=== PATIENT | male | born 1965 | race Caucasian/White ===

== ENCOUNTER 2020-06-05 08:42 | Outpatient (REF) | payer BC, SELFPAY ==
[2020-06-05 11:41] LABS: Cholesterol 274 mg/dL; HDL Cholesterol 38 mg/dL; LDL Cholesterol Calculated 187 mg/dl; Triglycerides 248 mg/dL
== END 2020-06-05 08:43 | disposition home or self-care (01) ==
LOC: HO.MANLR 08:42
PROVIDERS: PCP Internal Medicine; Visit Provider Internal Medicine
DX: E78.5 Hyperlipidemia, unspecified (principal)
CPT/HCPCS: 36415; 80061

== ENCOUNTER 2021-08-13 09:58 | Outpatient (REF) | payer BC, SELFPAY ==
[2021-08-13 11:03] LABS: MANUAL DIFF FLAG NO
[2021-08-13 11:09] LABS: Basophils Percent Auto 0.7 % (0-2); Eosinophils Absolute Auto 0.1 X10*3/uL (0.0-0.4); Eosinophils Percent Auto 1.9 % (0-4); Hemoglobin 15.3 g/dl (14.0-18.0); Imm Gran Abs Auto 0.03 X10*3/uL (0.00-0.03); Imm Gran Pct Auto 0.5 % (0.0-0.4); Lymphocytes Absolute Auto 1.9 X10*3/uL (1.2-4.9); Lymphocytes Percent Auto 33.4 % (20-40); Mean Corpuscular HGB Conc 33.3 g/dl (31.0-36.0); Mean Corpuscular Hemoglobin 31.4 pg (27.0-33.0); Mean Corpuscular Volume 94.5 fL (80.0-98.0); Mean Platelet Volume 9.6 fL (9.4-12.4); Monocytes Absolute Auto 0.5 X10*3/uL (0.1-1.2); Monocytes Percent Auto 8.7 % (2-11); Neutrophils Absolute Auto 3.1 x10*3/uL (2.0-8.3); Neutrophils Percent Auto 54.8 % (45-73); Platelet Count 260 X10*3/uL (160-400); Red Blood Count 4.87 X10*6/uL (4.60-5.80); Red Cell Distribution Width 12.8 % (11.0-16.0); White Blood Count 5.7 X10*3/uL (4.8-10.8)
[2021-08-13 11:21] LABS: Estimated Average Glucose 114 mg/dL; Hemoglobin A1c % 5.6 %
[2021-08-13 11:48] LABS: Erythrocyte Sedimentation Rate 2 MM/HR (0-15)
[2021-08-13 12:15] LABS: Alanine Aminotransferase 32 U/L (0-40); Albumin Level 4.4 g/dL (3.5-5.0); Alkaline Phosphatase 62 U/L (39-117); Anion Gap 14 (12-20); Aspartate Amino Transferase 15 U/L (5-37); Bilirubin Total 0.7 mg/dL (0.0-1.0); Blood Urea Nitrogen 18 mg/dL (9-16); C Reactive Protein 0.05 mg/dL (< or = 0.50); Calcium 9.5 mg/dL (8.4-10.2); Carbon Dioxide 25 mmol/L (22-29); Chloride 106 mmol/L (96-108); Cholesterol 259 mg/dL; Estimated Glomerular Filt Rate > 60; Gamma Glutamyl Transpeptidase 70 U/L (11-51); Glucose Fasting 93 mg/dL (60-99); HDL Cholesterol 36 mg/dL; Iron 130 mcg/dL (45-160); LDL Cholesterol Calculated 182 mg/dl; Lipase 18 U/L (8-78); Percent Iron Saturation 43 % (15-50); Potassium 4.6 mmol/L (3.3-5.1); Sodium 140 mmol/L (135-145); Total Iron Binding Capacity 305 mcg/dL (228-428); Total Protein 7.2 g/dL (6.5-8.0); Triglycerides 205 mg/dL; Unsaturated Iron Binding 175 ug/dL
[2021-08-13 12:21] LABS: Ferritin 233 ng/mL (20-250)
[2021-08-13 12:24] LABS: Amylase 50 U/L (28-100)
== END 2021-08-13 09:59 | disposition home or self-care (01) ==
LOC: HO.MANLDS 09:58
PROVIDERS: PCP Physician Assistant; Visit Provider Physician Assistant
DX: R10.32 Left lower quadrant pain (principal); E78.01 Familial hypercholesterolemia
CPT/HCPCS: 36415; 80053; 80061; 82150; 82728; 82977; 83036; 83540; 83690; 85025; 85652; 86140

== ENCOUNTER 2023-08-11 10:07 | Outpatient (REF) | payer BC, SELFPAY ==
[2023-08-11 13:15] LABS: MANUAL DIFF FLAG NO
[2023-08-11 13:51] LABS: Basophils Absolute Auto 0.1 X10*3/uL (0.0-0.2); Basophils Percent Auto 0.9 % (0-2); Eosinophils Absolute Auto 0.1 X10*3/uL (0.0-0.4); Hematocrit 44.6 % (42.0-52.0); Hemoglobin 14.9 g/dl (14.0-18.0); Imm Gran Abs Auto 0.02 X10*3/uL (0.00-0.03); Imm Gran Pct Auto 0.4 % (0.0-0.4); Lymphocytes Absolute Auto 2.1 X10*3/uL (1.2-4.9); Mean Corpuscular HGB Conc 33.4 g/dl (31.0-36.0); Mean Corpuscular Hemoglobin 31.9 pg (27.0-33.0); Mean Corpuscular Volume 95.5 fL (80.0-98.0); Mean Platelet Volume 9.8 fL (9.4-12.4); Monocytes Absolute Auto 0.5 X10*3/uL (0.1-1.2); Monocytes Percent Auto 8.9 % (2-11); Neutrophils Absolute Auto 2.7 x10*3/uL (2.0-8.3); Neutrophils Percent Auto 49.8 % (45-73); Platelet Count 258 X10*3/uL (160-400); Red Blood Count 4.67 X10*6/uL (4.60-5.80); Red Cell Distribution Width 13.2 % (11.0-16.0); White Blood Count 5.5 X10*3/uL (4.8-10.8)
[2023-08-11 14:03] LABS: Alanine Aminotransferase 31 U/L (0-40); Albumin Level 4.3 g/dL (3.5-5.0); Alkaline Phosphatase 58 U/L (39-117); Anion Gap 15 (12-20); Aspartate Amino Transferase 17 U/L (5-37); Bilirubin Total 0.7 mg/dL (0.0-1.0); Blood Urea Nitrogen 14 mg/dL (9-16); Calcium 9.6 mg/dL (8.4-10.2); Carbon Dioxide 25 mmol/L (22-29); Chloride 105 mmol/L (96-108); Estimated Glomerular Filt Rate > 60; Glucose Random 91 mg/dL (60-115); Potassium 4.3 mmol/L (3.3-5.1); Sodium 141 mmol/L (135-145); Thyroid Stimulating Hormone 1.11 uIU/mL (0.32-4.0); Total Protein 7.1 g/dL (6.5-8.0); Vitamin D 25-OH Total 96.8 ng/mL (>30)
[2023-08-11 14:09] LABS: Folate 14.1 ng/mL (> or = 4.0); Vitamin B12 460 pg/mL (200-900)
[2023-08-15 17:07] LABS: Testosterone, Total 297 ng/dL (250-1100)
== END 2023-08-11 10:08 | disposition home or self-care (01) ==
LOC: HO.MANLDS 10:07
PROVIDERS: Visit Provider Internal Medicine
DX: R53.83 Other fatigue (principal)
CPT/HCPCS: 36415; 80053; 82306; 82607; 82746; 84403; 84439; 84443; 85025

== ENCOUNTER 2024-07-25 08:04 | Outpatient (REF) | payer BC, SELFPAY ==
--- OUTSIDE RECORDS SUMMARY | 2024-07-25 08:16 | XMS_ITS | Patient Health Record ---
Author Organization [facility] Address [address] [place] [address] Care Team Providers Care Aviation Electronic Warfare Operator Name Role Phone Mack Mann MD Primary Care Provider Sterling Haddad Unavailable [phone] Allergies Allergen (clinical drug ingredient) Drug/Non Drug Allergy documented on EMR Reaction Allergy Type Onset Date Status amoxicillin Amoxicillin Unknown Drug Allergy Act lion Reason For Referral No Information Medications Medication SIG (Take, Route, Frequency, Duration) Notes Start Date End Date Status Work Note . . . patient is disab led from work until 12/23/20 12/19/2020 Active Fiber Active Multivitamin Active Probiotic & Acidophilus Ex St Active Probiotic Active Vitamin C Active Zoloft 25 MG 1 tablet Orally Once a day for 30 day(s) Active Immunizations Vaccine Route Administration Date Status Comme nts COVID-19 Pfizer BioNTech Vaccine Unknown 07/02/2020 Administered 1st 06/11/2020 Social History Tobacco Use: Social History Observation Description Date Details (start date - stop date) Never Smoker NA - NA Tobacco Use/Smoking Question Answer Notes Are you a: nonsmoker Additional Findings: Tobacco Non-User Current no n-smoker Alcohol Screen Question Answer Notes Did you have a drink containing alcohol in the p ast year? Yes Points 0 Interpretation Negative Tobacco use other than smoking: Question Answer Notes Are you an other tobacco user? No Problems Problem Type SNOMED Code ICD Code Onset Dates Problem Status W/U Status Risk Notes Problem Plantar fascial fibromatosis (52465835) Plantar fascial fibromatosis (M72.2) Active confirmed Plan Of Treatment Pending Test Test Name Order Date X ray : Foot, left 2V 01/21/2015 X ray : Foot, right 2V 01/21/2015 [id number] TENDON SHEATH/LIGAMENT 0 12/19/2020 Insurance Providers Payer Name Payer Address Payer Phone Subscriber Number Group Number Insured Name Patient Relationship to Insured Coverage Start Date Coverage End Date [facility] [address] [place] [address] [id number] Luis Heredia Self - patient is the insured Medical (General) History Medical History History ICD Code Headaches/Migraines Chicken pox Surgical History Surgery Date(Month/Year) hernia
--- OUTSIDE RECORDS SUMMARY | 2024-07-25 08:16 | XMS_ITS | Continuity of Care Document ---
Author Organization [facility], [facility] Address [address] [address] Assessment No assessment recorded. Plan of Treatment Reminders Order Date Submit Date Provider Last Modified By Organization Details Last Modified Time Details Appointments None recorded. Lab testostero ne, free + total, serum 2024 025 [facility], [address] [place] [address], [place], [address], 5 10:10:58 Referral sleep medicine referral 2024 025 [email or web address] [facility], [address] [facility], [facility] [address], [place], [address], 5 10:58:55 Procedures None recorded. Surgeries None recorded. Imaging None recorded. Medication Orders propranolo l 10 mg tablet 2024 025 [facility] #[id number], [address] [place], [address], 5 10:00:55 Patient TargetsNo targets recorded. Patient InstructionsNo instructions recorded. Reason for Referral Sleep Medicine Referral for Obstructive sleep apnea syndrome home sleep study, needs to confirm if mouth guard is working for sleep dentist Referring Physician: Audrey Franco, Internal Medicine, Encounter Date: 07/21/2024 Problems Name Problem SNOMED Code Status Onset Date Resolution Date Notes Provider Name and Address Organization Details Recorded Time Migraine 41968148 Active 2017 SVITLANA Valladares [facility] 8 14:46:26 Headache 50945573 Active 2017 Keli Cary [facility] Internal 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 2019 Mack Mann DO [address] [place] [address], [phone], [facility] 0 10:59:44 Plantar fasciiti s 139575123 Active 2019 Mack Mann, DO [address] [place] [address], [address], [facility] 0 10:59:46 Abdomina l pain 91828038 Active 2021 CARLOS MENDIOLA [address] [place] [address], [address], [facility] 2 16:35:53 Divertic ulosis of colon 193744164 Active 2021 CARLOS MENDIOLA [address] [place] [address], [address], [facility] 2 16:36:03 Divertic ulitis 592633553 Active 2021 CARLOS MENDIOLA [address] [place] [address], [address], [facility] 2 10:17:20 Lipoma of skin 470778305 Active 2021 CARLOS MENDIOLA [address] [place] [address], [address], [facility] 2 10:52:29 Pain of left shoulder joint [id number] 988857 Active 2021 CARLOS MENDIOLA [address] [place] [address], [address], [facility] 2 10:54:03 Hand pain 38533218 Active 2021 CARLOS MENDIOLA [address] [place] [address], [address], [facility] 2 10:56:34 Pain of left hip joint 30623501177 9100 Active 2022 Mack Mann, [address] [place] [address], [address], [facility] 3 11:36:45 Lumbago with sciatica 269189498 Active 2022 Mack Mann DO [address] [place] [address], [address], [facility] 3 11:37:34 Lumbago with sciatica 014851910 Active 2022 Mack Mann DO [address] [place] [address], [address], [facility] 3 11:37:46 Dry eyes 955236413 Active 2023 Mack Mann DO [address] [place] [address], [address], [facility] 4 09:57:54 Oral herpes simplex infectio n 692927539 Active 2023 Mack Mann DO [address] [place] [address], [address], [facility] 4 10:00:52 Fatigue 26842256 Active 2023 Mack Mann DO [address] [place] [address], [address], [facility] 4 10:02:15 Sacral back pain 44020494 Active 2023 Mack Mann DO [address] [place] [address], [address], [facility] Internal [facility] 4 15:25:23 Becca pennington's contract ure of finger 536848107 Active 2024 Mack Mann DO [address] [place] [address], [address], [facility] 5 13:34:40 Obstruct lion sleep apnea syndrome 79776141 Active 2024 CARLOS MENDIOLA [address] [place] [address], [address], [facility] 5 09:57:04 Generali zed anxiety disorder 37063214 Active 2024 CARLOS MENDIOLA [address] [place] [address], [address], [facility] 5 09:58:31 Testoste raghu level below referenc e range 649593374 Active 2024 CARLOS MENDIOLA [address] [place] [address], [address], [facility] 5 09:59:47 Problem Notes None recorded. Procedures Surgical History Date Name Laterality Status Provider Name and Address Organization Details Recorded Time 023 Corticosteroid Injection completed Mack Mann DO [address] [place] [address], [phone], [facility] 04/13/2022 12:45:14 019 Colonoscopy completed Keli Cary [facility] Internal [facility] 05/06/2018 08:20:59 018 Suture/Staple removal completed Mack Mann DO [address] [place] [address], [phone], [facility] 11/19/2017 15:56:46 Imaging Results None recorded. Procedure Notes None recorded. Medical Equipment None Reported. Allergies Allergen ID Allergen Name Allergen Category Reaction Reaction Severity Criticality Documentation Date Start Date Code Code System Note Provider Name and Address Organization Details Recorded Time 3098 Xyl medicatio n angioedem a Not available Not available 09/07/2018 14174 5 RxNorm July Poonam, [employer] [address] [place], [address] , [facility] 9 13:14:03 Medications Name Sig Start Date Stop Date Status Note LastModified by Organization Details LastModified Time Prescriptio n - Prior Authorizati on Request 06/26 completed Not Available Not Available Not Available amoxicillin 500 mg capsule TAKE 1 CAPSULE BY MOUTH 3 TIMES PER DAY UNTIL GONE. 08/10 completed Not Available Not Available Not Available atorvastati n 10 mg tablet Take 1 tablet every day by oral route. 09/28 completed Not Available Not Available Not Available azithromyci n 250 mg tablet TAKE 2 TABLETS BY MOUTH TODAY, THEN TAKE 1 TABLET DAILY FOR 4 DAYS DIRECTED 07/21 completed Not Available Not Available Not Available valacyclovi r 1 gram tablet TAKE 1 TABLET BY MOUTH TWICE A DAY START DONNELL AT ONSET OF SYMPTOMS active Not Available Not Available No t Available prednisone 20 mg tablet 09/28 completed Not Available Not Available Not Available metronidazo le 500 mg tablet TAKE 1 TABLET BY MOUTH EVERY 8 HOURS FOR 7 DAYS 03/25 completed Not Available Not Available Not Available naproxen 125 mg/5 mL oral suspension active Not Available Not Available N ot Available ciprofloxac in 500 mg tablet TAKE 1 TABLET BY MOUTH EVERY 12 HOURS FOR 7 DAYS 03/25 completed Not Available Not Available Not Available minoxidil 2.5 mg tablet TAKE ONE HALF TABLET BY MOUTH DAILY active Not Available Not Available No t Available oxycodone-a cetaminophe n 5 mg-325 mg tablet TAKE 1 TABLET BY MOUTH EVERY 8 HOURS NEEDED FOR PAIN 08/10 completed Not Available Not Available Not Available propranolol 10 mg tablet Take 1 tablet twice a day by oral route as needed for 30 days. 2024 active Not Available Not Available Not Avai lable Vitamin C 1,000 mg tablet Take 1 tablet twice a day by oral route. active Not Available Not Available No t Available triamcinolo ne acetonide 0.1 % topical ointment 10/09 completed Not Available Not Available Not Available butalbital- aspirin-caf feine 50 mg-325 mg-40 mg capsule Take 1 capsule twice a day by oral route as needed for 7 days. 02/22 completed Not Available Not Available Not Available docusate sodium 100 mg capsule TAKE 1 CAPSULE BY MOUTH EVERY DAY FOR 2 WEEKS 08/10 completed Not Available Not Available Not Available codeine 10 mg-guaifene sin 100 mg/5 mL oral liquid 11/19 completed Not Available Not Available Not Available bisacodyl 5 mg tablet,johanny yed release 08/16 completed Not Available Not Available Not Available mupirocin 2 % topical ointment APPLY TO SURGICAL SITE TWICE A DAY FOR 7-14 DAYS OR UNTIL FULLY HEALED active Not Available Not Available No t Available loteprednol etabonate 0.5 % eye drops,suspe nsion INSTILL 1 DROP OU QID FOR 14 DAYS 08/12 completed Not Available Not Available Not Available sertraline 50 mg tablet TAKE 1 TABLET BY MOUTH EVERY DAY 08/10 completed Not Available Not Available Not Available Restasis 0.05 % eye drops in a dropperette Instill by ophthalmi c route for 30 days. active Not Available Not Available No t Available rosuvastati n 5 mg tablet TK 1 T PO QAM 02/22 completed Not Available Not Available Not Available Garlique take 1 tablet by mouth once a day active Not Available Not Available No t Available Multivitami n 50 Plus 1 tablet by mouth once day active Not Available Not Available No t Available GaviLyte-G 236 gram-22.74 gram-6.74 gram-5.86 gram oral solution 08/16 completed Not Available Not Available Not Available Lotemax 0.5 % eye ointment INSTILL 1 DROP IN BOTH EYES QID FOR 14 DAYS 06/26 completed Not Available Not Available Not Available Systane (PF) 1 drop in each eye 4 to 5 times a day active Not Available Not Available No t Available Xiidra 5 % eye drops in a dropperette PUT 1 DROP INTO BOTH EYES TWICE A DAY EVERY 12 HOURS active Not Available Not Available No t Available Fluvirin 8219-8846 (PF) 45 mcg(15 mcg x3)/0.5 mL intramuscul ar syringe 03/02 completed Not Available Not Available Not Available Fluarix Quad (PF) 60 mcg (15 mcg x 4)/0.5 mL IM syringe 08/16 completed Not Available Not Available Not Available Afluria Qd (36 mos up)(PF)60 mcg (15 mcg x4)/0.5 mL IM syringe ADM 0.5ML IM UTD 06/26 completed Not Available Not Available Not Available BinaxNOW COVID-19 Ag Self Test kit FOLLOW PACKAGE DIRECTION S 08/10 completed Not Available Not Available Not Available Vitals Date Recorded Body height Body mass index (BMI) Body weight Heart rate Oxygen saturation Oxygen saturation in Arterial blood by Pulse oximetry Systolic blood pressure Diastolic blood pressure Provider Name and Address Organization Details Last Updated DateTime 5 177.8 cm 29.8 kg/m2 64767.2 1 g 77 /min 98 % 98 % 120 mm[Hg] 74 mm[Hg] [facility] 5 09:53:54 Social History Question Answer Notes LastModified by Organizat ion Details LastModified Time Tobacco Smoking Status Never Smoker Not Available [facility] 02[facility]06/2020 03:36:24 What Was The Date Of Your Most Recent Tobacco Screening? 07/21/2024 [email or web address] Information not available 07/21/2024 Do You Or Have You Ever Used Any Other Forms Of Tobacco Or Nicotine? No [email or web address] Information not available 03/25/2022 Sex: Unknown Functional Status None recorded. Mental Status None recorded. Family History Nothing Reported. Medical History Condition Response Coronary Artery Disease N Other N Gout N Blood Diseases N Kidney Stones N Breast Cancer N Blood Transfusion N Lung Disease N Depression N COPD N Defects or Inherited Disease N Anxiety Disorder N Muscle, Joint, or Bone Problems N Obesity N Vision or Eye Problems N Arthritis N Infertility N Polyps N Mental Disorder N Cancer N Stroke N Varicosities N Endometriosis N Bladder or Kidney Problems N High Cholesterol N Liver Disease N Fibromyalgia N Headaches N Kidney Disease N Allergies/Hayfever N Heart Problems N Hospitalizations N Thyroid Problems N GI Problems N Eating Disorder N Skin Problems N Anemia N MRSA exposure N Constipation N Mental Illness N Diabetes N Ovarian Cancer N Seizures/Epilepsy N Tuberculosis N Congestive Heart Failure (CHF) N Eczema N Abuse/Domestic Violence N Diverticulitis N Asthma N Reflux/GERD N Hepatitis N Heart Disease N Pulmonary Embolism N Hypertension N Chicken Pox N Autism Spectrum Disorder (ASD) N Osteoporosis N Immunizations Vaccine Type Date Status Note Provider Nam e and Address Organization Details Recorded Time influenza, unspecified formulation 2 completed Keli rincon [facility] 03/25/2022 10:34:52 Influenza, split virus, quadrivalent, preservative 0 bhavana rincon [facility] 06/26/2020 12:12:25 COVID-19, mRNA, LNP-S, PF, 30 mcg/0.3 mL dose 1 completed Keli Cary [facility] 06/26/2020 12:14:33 Past Encounters Encounter ID Performer Location Encounter Start Date Encounter Closed Date Diagnosis/Indication Diagnosis SNOMED-CT Code Diagnosis ICD10 Code Diagnosis Note [id number] CARLOS MENDIOLA [facility] [address] [facility],[place] [address] 07/21/2024 09:48:26 07/21/2024 10:58:55 Obstructive sleep apnea syndrome 25630824 G47.33 will set up with home sleep study Generalize d anxiety disorder 10353685 F41.1 would like a script for this, worked well Testostero ne level below reference range 214250759 R79.89 recheck levels Health Concerns Section Related Observation LastModified by Organization Detai ls LastModified Time None Recorded Concern Status LastModified by Organization Details LastModified Time None Recorded Payers Encounter Date Sequence Insurance Name Policy Number Policy Collazo Covered Member ID Collazo Member ID Guarantor Name 07/21/2024 1 [facility] [place] [id number] Luis Heredia [id number] Luis Heredia Notes Date Note Type Note Provider Name a nd Address Organization Details Recorded Time 07/21/2024 text/html f/u medication check sleep apnea: needs study, home to check if mouth guard works anxiety: stage fright, is a musician, 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
--- OUTSIDE RECORDS SUMMARY | 2024-07-25 08:17 | XMS_ITS | Data Portability ---
Author Organization [facility], Home Service Address [address] [facility] [place] [address] Assessment Encounter Date Assessment Date Assessment LastModified by Organization Details LastModified Time 04/13/2022 04/13/2022 [address] [place] [address] (MANAGER MONEY) : MDM LOW MUST MEET 2 OF 3 ELEMENTS: PROBLEMS, DATA OR RISK ELEMENT 1: PROBLEMS ADDRESSED (LOW): 2 OR MORE SELF-LIMITED OR MINOR PROBLEMS OR 1 STABLE CHRONIC ILLNESS OR 1 ACUTE UNCOMPLICATED ILLNESS OR INJURY ELEMENT 2: DATA TO BE REVISED AND ANALYZED (LOW) MUST MEET 1 OF 2 CATEGORIES: CATEGORY 1. REVIEW OF PRIOR EXTERNAL NOTES/RESULTS, ORDERING OF TEST(S) CATEGORY 2. ASSESSMENT REQUIRING INDEPENDENT HISTORIAN(S) INCLUDE WHO THE HISTORIAN IS AND RELATION TO PT AND WHY PT IS UNABLE TO GIVE COMPLETE HISTORY ELEMENT 3: RISK (LOW) RISK OF COMPLICATIONS AND/OR MORBIDITY OR MORTALITY OF PATIENT MANAGEMENT PROVIDER MUST THOROUGHLY DOCUMENT ALL OF THE ELEMENTS COVERED Not available 04/13/2022 12:31:55 08/11/2023 08/11/2023 [address] [place] [address] (MANAGER MONEY) MDM MODERATE MUST MEET 2 OUT OF 3 ELEMENTS: PROBLEMS, DATA OR RISK ELEMENT 1: PROBLEMS ADDRESSED 1 OR MORE CHRONIC ILLNESS WITH EXACERBATION OR 2 OR MORE STABLE CHRONIC ILLNESSES OR 1 UNDIAGNOSED NEW PROBLEM OR 1 ACUTE ILLNESS W/SYMPTOMS OR 1 ACUTE COMPLICATED INJURY ELEMENT 2: DATA MUST MEET 1 OF 3 CATEGORIES CATEGORY 1: REVIEW OF PRIOR EXTERNAL NOTES, REVIEW OF RESULTS, ORDERING OF EACH TEST, ASSESSMENT REQUIRING INDEPENDENT HISTORIAN OR CATEGORY 2: INDEPENDENT INTERPRETATION OF TESTS BY ANOTHER PHYSICIAN OR SPECIALIST OR CATEGORY 3: DISCUSSION OF MGT OR TEST INTERPRETATION W/EXTERNAL PHYSICIAN OR SPECIALIST ELEMENT 3: RISK RISK OF COMPLICATIONS AND/OR MORBIDITY OR MORTALITY OF PATIENT MANAGEMENT PROVIDER MUST THOROUGHLY DOCUMENT EACH ELEMENT THAT IS COVERED Not available 08/11/2023 10:00:40 Plan of Treatment Reminders Order Date Submit Date Provider Last Modified By Organization Details Last Modified Time Details Appointments None recorded. Lab testostero ne, free + total, serum 2024 025 [facility], [address] [place] [address], [address], 5 10:10:58 testostero ne, total, serum 2023 024 [facility], [address] [place] [address], [address], 4 11:08:25 vitamin B12 + folate, serum or blood 2023 024 [facility], [address] [place] [address], [address], 4 10:04:56 TSH + T4, serum 2023 024 [facility], [address] [place] [address], [address], 4 10:04:56 CBC w/ auto diff 2023 024 [facility], [address] [place] [address], [address], 4 10:04:56 vitamin D, 25-hydroxy , total, serum 2023 024 [facility], [address] [place] [address], [address], 4 10:04:56 CMP, serum or plasma 2023 024 [facility], [address] [place] [address], [address], 4 11:10:12 CMP, serum or plasma 2022 023 [facility], [address] [place] [address], [address], 3 11:35:19 lipid panel, blood 2022 023 [facility], [address] [place] [address], [address], 3 11:35:20 PSA, serum or plasma 2022 023 [facility], [address] [place] [address], [address], 3 11:35:20 CBC w/ auto diff 2022 023 [facility], [address] [place] [address], [address], 3 11:35:19 vitamin D, 25-hydroxy , total, serum 2022 023 [facility], [address] [place] [address], [address], 3 11:35:19 Referral sleep medicine referral 2024 025 [email or web address] [facility], [address] [facility] [facility], [facility] [address], [place], [address], 5 10:58:55 Procedures None recorded. Surgeries None recorded. Imaging MRI, lumbar spine, w/o contrast - NOT REQUIRED Procedure codes: 29001Ghbb Reference #: [id number] Resolution : Completed on 08/11/2023 at 03:56 pm. Call ref #[id number] 9. 2023 024 [facility], [address], [place], [address], 4 16:42:57 XR, hip, unilateral , 2 or 3 view 2022 023 [facility], [address] [place], [address], 3 11:00:11 XR, lumbosacra l spine, 2 or 3 view 2022 023 [facility], [address] [place], [address], 3 16:57:58 CT, heart, w/o contrast, w/ coronary calcium score 2022 023 [facility], [address] [place], [address], 3 08:43:22 XR, shoulder, 2 or more view 2021 022 [facility], [address] [place], [address], 2 15:31:02 US, chest 2021 022 [email or web address] 10 [facility], [address] [facility], [place], [address], 2 11:43:19 XR, hand, 3 or more view - bilateral 2021 022 [facility], [address] [place], [address], 2 17:10:59 Medication Orders propranolo l 10 mg tablet 2024 025 [facility]2024, [address] [place], [address], 5 10:00:55 valacyclov ir 1 gram tablet 2023 024 [facility]2024, [address] [place], [address], 4 10:03:42 Restasis 0.05 % eye drops in a dropperett e 05/08/ 2024 05/08/2 024 [facility]2025, [address] [place], [address], 10:03:42 Patient TargetsNo targets recorded. Patient InstructionsNo instructions recorded. Reason for Referral Sleep Medicine Referral for Obstructive sleep apnea syndrome home sleep study, needs to confirm if mouth guard is working for sleep dentist Referring Physician: Audrey Franco, Internal Medicine, Encounter Date: 07/21/2024 Results Created Date Observation Date Name Description Value Unit Range Abnormal Flag Note LastModifiedBy Organization Detail LastModifiedTime 03/26/2003/26/2022 XR, shoul rani, 2 or more view No observ ation record ed. [facility] [address] [place], [address], 03/27/2022 08:56:30 03/26/20 22 03/26/2022 XR, hand, 3 or more view No observ ation record ed. [facility] [address] [place], [address], 03/27/2022 08:56:30 04/08/19 23 04/08/2022 US, chest No observ ation record ed. [facility] [address] [place], [address], 04/09/2022 09:01:21 10/30/19 23 10/29/2022 XR, hip, unila teral , 2 or 3 view No observ ation record ed. [facility] [address] [place], [address], 10/30/2022 08:31:32 10/30/19 23 10/29/2022 XR, lumbo sacra l spine , 2 or 3 view No observ ation record ed. [facility] [address] [place], [address], 10/30/2022 08:31:33 10/31/19 23 10/29/2022 CT, heart , w/o contr ast, w/ coron stephanie calci um score No observ ation record ed. [email or web address] [facility] [address] [place], [address], 11/04/2022 08:35:46 11/04/19 24 11/02/2023 MRI, lumba r spine , w/o contr ast No observ ation record ed. [email or web address] [address], [address], 11/05/2023 15:25:07 Result Notes None recorded. Problems Name Problem SNOMED Code Status Onset Date Resolution Date Notes Provider Name and Address Organization Details Recorded Time Migraine 69081762 Active 2017 Keli rincon [facility] 8 14:46:26 Headache 41915950 Active 2017 Keli rincon [facility] 8 14:46:30 Herpes labialis 8808632 Completed 201703/02/2018 Mack Mann DO [address] [place] [address], [address], [facility] 8 12:45:04 Hypercho lesterol emia 54039071 Active 2018 Mack Mann DO [address] [place] [address], [address], [facility] 9 15:42:47 Tear film insuffic iency 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 Active 2019 Mack Mann DO [address] [place] [address], [address], [facility] 0 10:59:44 Plantar fasciiti s 664669855 Active 2019 Mack Mann DO [address] [place] [address], [address], [facility] 0 10:59:46 Abdomina l pain 97096397 Active 2021 CARLOS MENDIOLA [address] [place], [address], [facility] 2 16:35:53 Divertic ulosis of colon 889900175 Active 2021 CARLOS MENDIOLA [address] [place], [address], [facility] 2 16:36:03 Divertic ulitis 338946980 Active 2021 CARLOS MENDIOLA [address] [place], [address], [facility] 2 10:17:20 Lipoma of skin 370664908 Active 2021 CARLOS MENDIOLA [address] [place], [address], [facility] 2 10:52:29 Pain of left shoulder joint 37727836058 250732 Active 2021 CARLOS MENDIOLA [address] [place] [address], [address], [facility] 2 10:54:03 Hand pain 28039769 Active 2021 CARLOS MENDIOLA [address] [place] [address], [address], [facility] 2 10:56:34 Pain of left hip joint 98029837499 9100 Active 2022 Mack Mann DO [address] [place] [address], [address], [facility] 3 11:36:45 Lumbago with sciatica 241287993 Active 2022 Mack Mann DO [address] [place] [address], [address], [facility] 3 11:37:34 Lumbago with sciatica 777695735 Active 2022 Mack Mann DO [address] [place] [address], [address], [facility] 3 11:37:46 Dry eyes 637229344 Active 2023 Mack Mann DO [address] [place] [address], [address], [facility] 4 09:57:54 Oral herpes simplex infectio n 761734948 Active 2023 Mack Mann, DO [address] [place] [address], [address], [facility] 4 10:00:52 Fatigue 51963685 Active 2023 Mack Mann DO [address] [place] [address], [address], [facility] 4 10:02:15 Sacral back pain 89196311 Active 2023 Mack Mann DO [address] [place] [address], [address], [facility] 4 15:25:23 Dupuyninfa pennington's contract ure of finger 608574955 Active 2024 Mack Mann DO [address] [place] [address], [address], [facility] 5 13:34:40 Obstruct lion sleep apnea syndrome 83600005 Active 2024 CARLOS MENDIOLA [address] [place] [address], [address], [facility] 5 09:57:04 Generali zed anxiety disorder 31811515 Active 2024 CARLOS MENDIOLA [address] [place] [address], [address], [facility] 5 09:58:31 Testoste raghu level below referenc e range 658164394 Active 2024 CARLOS MENDIOLA [address] [place] [address], [address], [facility] 09:59:47 Problem Notes None recorded. Procedures Surgical History Date Name Laterality Status Provider Name and Address Organization Details Recorded Time 023 Corticosteroid Injection completed Mack Mann DO [address] [place], [address], [facility] 04/13/2022 12:45:14 019 Colonoscopy completed Keli Cary [facility] 05/06/2018 08:20:59 018 Suture/Staple removal completed Mack Mann DO [address] [place], [address], [facility] 11/19/2017 15:56:46 Imaging Results Imaging Date Name Status LastModified by Mario ataliza Details LastModified Time 03/26/2022 XR, shoulder, 2 or more view completed [facility] [address], [address], 03/27/2022 08:56:30 03/26/2022 XR, hand, 3 or more view completed [facility] [address], [address], 03/27/2022 08:56:30 04/08/2022 US, chest completed [facility] [address], [address], 04/09/2022 09:01:21 10/29/2022 XR, hip, unilateral, 2 or 3 view completed [facility] [address] [place], [address], 10/30/2022 08:31:32 10/29/2022 XR, lumbosacral spine, 2 or 3 view completed [facility] [address], [address], 10/30/2022 08:31:33 10/29/2022 CT, heart, w/o contrast, w/ coronary calcium score completed [email or web address] [facility] [address] [place], [address], 11/04/2022 08:35:46 11/02/2023 MRI, lumbar spine, w/o contrast completed [email or web address] [facility] [address] [place], [address], 11/05/2023 15:25:07 Procedure Notes None recorded. Medical Equipment None Reported. Allergies Allergen ID Allergen Name Allergen Category Reaction Reaction Severity Criticality Documentation Date Start Date Code Code System Note Provider Name and Address Organization Details Recorded Time 3098 Xyzal medicatio n angioedem a Not available Not available 09/07/2018 85254 5 RxNorm July PoonamARTURO [address] [place], [address], [facility] 9 13:14:03 Medications Name Sig [...] Available Not Available No t Available Fluvirin (PF) 45 mcg(15 mcg x3)/0.5 mL intramuscul [...] and Address Organization Details Last Updated DateTime 2 177.8 cm 31.1 kg/m2 10356.4 7 g 82 /min 98 % 98 % 118 mm[Hg] 70 mm[Hg] Keli Cary [facility] 2 10:35:35 Date Recorded Body height Provider Name an d Address Organization Details Last Updated DateTime 04/13/2022 177.8 cm Karen Gordon O [address] [place], [address], [facility] 04/13/2022 12:23:23 Date Recorded Body height Body mass index (BMI) Body weight Heart rate Oxygen saturation Oxygen saturation in Arterial blood by Pulse oximetry Systolic blood pressure Diastolic blood pressure Provider Name and Address Organization Details Last Updated DateTime 3 177.8 cm 30.4 kg/m2 54819.5 8 g 85 /min 96 % 96 % 130 mm[Hg] 80 mm[Hg] Loretta Valladares [facility] 3 11:06:14 Date Recorded Body height Body mass index (BMI) Body weight Heart rate Respiratory rate Oxygen saturation Oxygen saturation in Arterial blood by Pulse oximetry Systolic blood pressure Diastolic blood pressure Provider Name and Address Organization Details Last Updated DateTime 4 177.8 cm 30 kg/m2 88744.0 9 g 68 /min 16 /min 99 % 99 % 128 mm[Hg] 84 mm[Hg] Osman Victoria [facility] 4 09:46:18 Date Recorded Body height Body mass index (BMI) Body weight Heart rate Oxygen saturation Oxygen saturation in Arterial blood by Pulse oximetry Systolic blood pressure Diastolic blood pressure Provider Name and Address Organization Details Last Updated DateTime 5 177.8 cm 29.8 kg/m2 10759.2 1 g 77 /min 98 % 98 % 120 mm[Hg] 74 mm[Hg] Loretta Raglandmond [facility] 5 09:53:54 Social History Question Answer Notes LastModified by Fooalaat ion Details LastModified Time Tobacco Smoking Status Never Smoker Not Available [facility] 03:36:24 What Was The Date Of Your Most Recent Tobacco Screening? 07/21/2024 [email or web address] Information not available 07/21/2024 Do You Or Have You Ever Used Any Other Forms Of Tobacco Or Nicotine? No [email or web address] Information not available 03/25/2022 Sex: Unknown Functional Status None recorded. Mental Status None recorded. Family History Nothing Reported. Medical History Condition Response Coronary Artery Disease N Gout N Other N Kidney Stones N Blood Diseases N Blood Transfusion N Breast Cancer N Lung Disease N Depression N COPD [...] influenza, unspecified formulation 2 completed Keli rincon [facility] 03/25/2022 10:34:52 Influenza, split virus, quadrivalent, preservative 0 bhavana rincon [facility] 06/26/2020 12:12:25 COVID-19, mRNA, LNP-S, PF, 30 mcg/0.3 mL dose 1 completed Keli rincon [facility] 06/26/2020 12:14:33 Past Encounters Encounter ID Performer Location Encounter Start Date Encounter Closed Date Diagnosis/Indication Diagnosis SNOMED-CT Code Diagnosis ICD10 Code Diagnosis Note [id number] Mack Mann [facility] [address] [place] [address] 11/19/2017 14:57:01 11/19/2017 16:06:09 Scalp laceration 793293052 S01.01XA [id number] Mack Mann [facility] [address] [place] [address] 03/02/2018 12:01:25 03/02/2018 14:20:22 Rectal pain 20143397 K62.89 gastro referral and will have pt stop the statin med as his sx seem to correlate around time hestarted cholest med Mack Mann [facility] [address] [place] [address] 08/16/2018 15:12:14 08/16/2018 15:58:54 Hypercholesterolemia 22836948 E78.00 Hand pain 82793312 M79.6 42 Migraine 49197095 G43.90 9 [id number] Mack Mann [facility] [address] [place] [address] 09/29/2019 09:29:28 09/29/2019 11:03:57 Prolapsed internal hemorrhoids 76425588 K64.8 will hold his rosuvastat in will refer him to dr pimentel for eval On examina tion - [place] - rectal mass 967761802 R19.00 has a palp lump at 12 oclock of rectum this will need to be eval by gen surg [id number] Mack Mann [facility] [address] [facility] [address] 10/10/2019 10:29:31 10/10/2019 11:38:08 Adult health examination 081016207 Z00.01 Active or passive immunization 357781510 Z23 Tear film insufficiency 25903996 H04.129 [facility] he seek optho eval to get restasis etc trial Plantar fasciitis 20271105 003 M72.2 Migraine 17474091 G43.90 9 occ will use the fiorinal [id number] CARLOS MENDIOLA [facility] [address] [facility] [address] [facility], [address] [facility] [place] [address] 02/23/2020 10:10:45 02/23/2020 10:54:24 Dry eyes 315723690 H04.129 will try prescripti on restasis for chronic dry and see if improvemen t Itching of eye 44873394 L29.8 due to lack of tear production [id number] Mack Mann, [facility] [address] [facility], [address] [facility] [place] [address] 06/26/2020 11:59:56 06/26/2020 14:38:58 Hypercholesterolemia 68881446 E78.00 alex g detailed discussion re prob with his intoleranc e to statins he will cont to do aggressive dieting and exercise and will lose weight and we will rechk in Plantar fasciitis 20271105 003 M72.2 will try to use the cbd oil [id number] CARLOS MENDIOLA [facility] [address] [facility], [place] [address] 08/12/2021 16:01:22 08/12/2021 16:45:25 Abdominal pain 67344242 R10.32 will fu with testing prior to treating patient Diverticul osis of colon 550095662 K57.30 will fu with testing prior to starting on abx for possible diverticul itis Hypercholesterolemia 136 39624 E78.01 will fu with lab testing [id number] CARLOS MENDIOLA [facility] [address] [facility] [address] [address] 03/25/2022 10:29:30 03/25/2022 16:47:09 Lipoma of skin 510447682 D17.30 will check with US to confirm lipoma diagnosis Pain of le ft shoulder joint 9254481111 1213151 M25.512 will set up with cortisone injwill also XR his shoulder Hand pain 97412154 M79.6 42 agreed to hand XRs [id number] Mack Mann [facility] [address] [facility] [address] [place] [facility] [address] 04/13/2022 12:05:31 04/13/2022 13:37:43 Pain of left shoulder joint 3310952578 5637863 M25.512 aniceto inj well tolerated [id number] Mack Mann DO [facility] [address] [facility],[place] [address] [place] [facility] [address] 10/20/2022 10:58:41 10/20/2022 11:44:17 Active or passive immunization 070576845 Z23 utd Adult heal th examination 255740326 Z00.00 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 Pain of le ft hip joint 0363954764 55291 M25.552 Lumbago with sciatica 20 0942576 M54.42 [id number] Mack Mann DO [facility] [address] [facility],[place] [address] 08/11/2023 09:32:23 08/11/2023 14:32:38 Lumbago with sciatica 353248486 M54.42 Depression screening 171 309319 Z13.31 doing well Dry eyes 532110166 H04.1 23 Oral herpe s simplex infection 437549741 B00.2 Fatigue 03072011 R53.83 [id number] CARLOS MENDIOLA [facility] [address] [facility] [address],[place] [address] 07/21/2024 09:48:26 07/21/2024 10:58:55 Obstructive sleep apnea syndrome 50148061 G47.33 will set up with home sleep study Generalize d anxiety disorder 65745868 F41.1 would like a script for this, worked well Testostero ne level below reference range 896346866 R79.89 recheck levels Health Concerns Section Related Observation LastModified by Organization Detai ls LastModified Time None Recorded Concern Status LastModified by Organization Details LastModified Time None Recorded Advance Directives Directive None Recorded Payers Encounter Date Sequence Insurance Name Policy Number Policy Collazo Covered Member ID Collazo Member ID Guarantor Name 03/25/2022 1 [place] [facility] [place] [place] [id number] Smith A Heredia [id number] Smith A Heredia 04/13/2022 1 [place] [facility] [place] [place] [id number] Smith A Heredia [id number] Smith A Heredia 10/20/2022 1 [place] [facility] [place] [place] [id number] Smith A Heredia [id number] Smith A Heredai 08/11/2023 1 [place] [facility] [place] [place] [id number] Smith A Heredia [id number] Smith A Heredia 07/21/2024 1 [place] [facility] ([place]) [id number] Smith A Heredia [id number] Smith A Heredia Notes Date Note Type Note Provider Name a vt Address Organization Details Recorded Time 2 text/html c/o PT referral Pt had a fall back in January and broke 2 ribs (#5, #6) on the left sidePt still having problems with the joint in my shoulder from the fallPts chiropractor is certain that it is shoulder impingement which would benefit from physical therapy and a cortisone shotagreed with cortisone inj and PT, will have him set up with Guillermina cardoso PT and see if the cortisone inj works first did not have he shoulder XR'd, did discuss with him besides impingement he could also have a rotator cuff tendinitisthe patient symptoms are unlikely to be a tear, no weakness no pain with overhead motion agreed to XR also needs Xrs of hands, told prior by MB but didn't do it CARLOS MENDIOLA [address] [place], [address], [facility] 03/25/2022 11:05:49 3 text/html has had ongoing issuesand relates has had shoulder pain and discomfort and is not getting betterseing by DC and felt he req aniceto inj Mack Hardy Pauldeanna, [address], [address], [facility] 04/13/2022 12:45:38 3 text/html Annual WellnessReported bypatient.Diet and Nutrition:healthy diet Fracture Risk:no history of fractures; no recent explained fracture; no sudden unexplained fractures; no previous musculoskeletal injuries Physical Activity:exercises on a regular basis; recent increase in physical activity; good physical condition Additional Lifestyle Factors:no tobacco use; no alcohol intake; stopped drinking alcohol Depression Risk:never feels sad, empty, or tearful; no loss of interest in activities; no significant changes in weight; no sleep disturbances or insomnia; no agitation; no loss of energy; no feelings of worthlessness or guilt; no thoughts of suicide; no history of depression; no history of mood disorders Hearing:no loss of hearing Vision:no vision problemsNotes:her for cpe Mack Hardy Mackenzie, [address], [id number], [facility] Internal [facility] 10/20/2022 11:39:57 4 text/html c/o myalgia and low back pain for monthsrelates not getting better and is feelingexhausted does wear mouth guard and is not having trouble sleeping relates feels old doesnt have the strength like he used togets tired more easilyrelates feels older than 57yrs no cp no sobappretite ok lost weightbowels ok no blood bladder ok has nocturia x2 Mack Mann, DO [address] [place], [id number], [facility] 08/11/2023 10:05:48 5 text/html f/u medication check sleep apnea: needs [...] usual otherwise no other questions CARLOS MENDIOLA [address] [place] [address], [place], [id number], [facility] 07/21/2024 10:07:46
[2024-08-02 12:32] LABS: Testosterone, Free 78.8 pg/mL (35.0-155.0); Testosterone, Total 428 ng/dL (250-1100)
== END 2024-07-25 08:05 | disposition home or self-care (01) ==
LOC: HO.MANLDS 08:04
PROVIDERS: Visit Provider Physician Assistant
DX: R79.89 Other specified abnormal findings of blood chemistry (principal)
CPT/HCPCS: 36415; 84402; 84403